=== PATIENT | female | born 2000 | race Caucasian/White ===

== ENCOUNTER 2022-03-21 20:51 | Emergency (ER) | payer SELFPAY ==
[2022-03-21] MEDS ORDERED: Albuterol/Ipratropium 3.0-0.5 MG/3 ML Neb Soln ONE (20:52)
[2022-03-21] MEDS ORDERED: Albuterol/Ipratropium 3.0-0.5 MG/3 ML Neb Soln NEB ONE (21:10)
[2022-03-21] MEDS ORDERED: methylPREDNISolone Sodium Succinate 125 MG/2 ML SDV IM ONE (21:10)
[2022-03-21] MEDS ORDERED: Lactated Ringers 1,000 ML IV ONE (21:42)
[2022-03-21] MEDS ORDERED: Sodium Chloride 0.9% 10 ML Syringe FLUSH PRN (21:42)
[2022-03-21] MEDS ORDERED: Ondansetron 4 MG/2 ML SDV IVPUSH ONE (21:42)
[2022-03-21 22:23] LABS: ESTIMATED GFR 94 mL/min (>60)
[2022-03-21] MEDS ORDERED: methylPREDNISolone Sod Succ 125 MG in Dextrose 5% in Water 100 ML IV ONE ×2 (22:38)
[2022-03-21] MEDS ORDERED: methylPREDNISolone Sodium Succinate 125 MG/2 ML SDV IVPUSH ONE (22:42)
== END 2022-03-22 00:25 | disposition home or self-care (01) ==
LOC: JP.ED 20:51
DX: J45.41 Moderate persistent asthma with (acute) exacerbation (principal); Z20.822 Contact with and (suspected) exposure to COVID-19
CPT/HCPCS: 36415; 71046; 80053; 82550; 83605; 85025; 87635; 94640; 96361; 96374; 96375; 99285; J2405; J2930; J3490; J7120; J7620; U0002